=== PATIENT | male | born 1940 | race Caucasian/White ===

== ENCOUNTER 2017-09-28 14:34 | Inpatient (IN) | payer MEDICARE, MEDICAID ==
--- NOTE | 2017-09-28 15:21 | ED Physician Chart ---
ED Chief Complaint/HPI - Patient Information Date Seen:: 09/28/17 Time Seen:: 14:45 Chief Complaint:: Vertigo History of Present Illness:: onset x 3 days of weakness, dizziness, syncope, NS, and vertigo resulting in frequent falls; Hx of Left Elbow Fx/Subluxation; pt's last tetanus shot: < 5 years; UTD; no report of H/As, S/T, neck pain, C/P, SOB, Abd. Pain, A/N/V/D/C, fever, chills, or urinary s/s Allergies:: Allergies Allergy/AdvReac Type Severity Reaction Status Date / Time No Known Allergies Allergy Verified 09/28/17 15:06 Vitals:: Vital Signs - 8 hr 09/28/17 14:46 Temp 98.1 F HR 56 RR 16 BP 138/89 O2 Sat % 94 Historian:: Patient, EMS Review:: Nurse's Note Reviewed, Old Chart Reviewed, EMS run form Reviewed ED Review of Systems - Review of Systems General/Constitutional: No fever, No chills, No weight loss, Weakness, No diaphoresis, No edema, No loss of appetite Skin: No skin lesions, No rash, No bruising Head: No headache, No light-headedness Eyes: No loss of vision, No pain, No diplopia ENT: No earache, No nasal drainage, No sore throat, No tinnitus Neck: No neck pain, No swelling, No thyromegaly, No stiffness, No mass noted Cardio Vascular: No chest pain, No palpitations, No PND, No orthopnea, No edema Pulmonary: No SOB, No cough, No sputum, No wheezing GI: No nausea, No vomiting, No diarrhea, No pain, No melena, No hematochezia, No constipation, No hematemesis G/U: No dysuria, No frequency, No hematuria, No nacturia Musculoskeletal: No bone or joint pain, No back pain, No muscle pain Endocrine: No polyuria, No polydipsia Psychiatric: No prior psych history, No depression, No anxiety, No suicidal ideation, No homicidal ideation, No auditory hallucination, No visual hallucination Hematopoietic: No bruising, No lymphadenopathy Allergic/Immuno: No urticaria, No angioedema Neurological: Syncope, No focal symptoms, Weakness, No paresthesia, No headache , Seizure, Dizziness, Confusion, Vertigo ED Past Medical History - Past Medical History Obtainable: Yes Past Medical History: HTN, Dyslipidemia, Seizures Family History: HTN Social History: Non Smoker, No Alcohol, No Drug Use, Single, Care Facility Surgical History: other (Left Elbow Surgery) Psychiatricy History: None Medication: Reviewed Family Medical History - Family Member Mother History Unknown: Yes Ethnicity: Unknown Living Status: ED Physical Exam - Physical Examination General/Constitutional: Awake, Well-developed, well-nourished, Alert, No distress, GCS 15, Non-toxic appearing, Ambulatory Head: Atraumatic Eyes: Lids, conjuctiva normal, PERRL, EOMI Skin: Nl inspection, No rash, No skin lesions, No ecchymosis, Well hydrated, No lymphadenopathy ENMT: External ears, nose nl, TM canals nl, Nasal exam nl, Lips, teeth, gums nl , Oropharynx nl, Tonsils nl Neck: Nontender, Full ROM w/o pain, No JVD, No nuchal rigidity, No bruit, No mass, No stridor Respiratory: Nl effort/Exclusion, Clear to Auscultation, No Wheeze/Rhonchi/Rales Cardio Vascular: RRR, No murmur, gallop, rubs, NL S1 S2, Carotid/Femoral/Distal pulses equal bilaterally GI: No tenderness/rebounding/guarding, No organomegaly, No hernia, Normal BS's, Nondistended, No mass/bruits, No McBurney tenderness, Rectum exam nl : No CVA tenderness Extremities: No tenderness or effusion, Full ROM, normal strength in all extremities, No edema, Normal digits & nails Neuro/Psych: Alert/oriented, DTR's symmetric, Normal sensory exam, Normal motor strength, Judgement/insight normal, Mood normal, Normal gait, No focal deficits Misc: Normal back, No paraspinal tenderness ED Labs/Radiology/EKG Results - Lab Results Comments:: U/A: + Leukocytes - Radiology Results Comments:: NAD - EKG Interpretations EKG Time:: 15:17 Rate & Rhythm: 52; SB Comments:: T-Wave Inversions ED Septic Shock - . Is Septic Shock (SBP<90, OR Lactate>4 mmol\L) present?: No - <6hrs of presentation: Vital Signs: Vital Signs - 8 hr 09/28/17 14:46 Temp 98.1 F HR 56 RR 16 BP 138/89 O2 Sat % 94 ED Reassessment (Disposition) - Reassessment Reassessment Condition:: Improved - Diagnosis Diagnosis:: Dx: Syncope; Vertigo; Weakness; Dizziness; Myocardial Ischemia; Bradycardia; Bradyarrythmias; Cardiac Arrythmias; UTI - Aftercare/Follow up Instructions Aftercare/Follow-Up Instructions:: Counseled pt regarding lab results/diagnosis & need follow up, Counseled pt & family regarding lab results/diagnosis & need follow up - Patient Disposition Discharge/Transfer:: Acute Care w/in this hosp Accepting Physician:: Dr. Aldridge Time Called:: 1600 Time Responded:: 16:00 Admitted to:: Telemetry Spoke to:: Dr. Aldridge Admitting Medical Physician:: Dr. Aldridge Condition at Disposition:: Stable, Improved
[2017-09-28 15:38] LABS: % BASOPHILS 0.5 % (0.0-2.0); % EOSINOPHILS 3.3 % (0.0-5.0); % LYMPHOCYTES 21.2 % (20.0-50.0); % MONOCYTES 8.7 % (2.0-10.0); % NEUTROPHILS 66.3 % (40.0-80.0); EOSINOPHILE ABSOLUTE 0.2 Th/cmm (0.1-0.4); HEMATOCRIT 40.8 % (41.0-60); LYMPHOCYTE ABSOLUTE 1.1 Th/cmm (1.5-3.0); MEAN CELL VOLUME 87.4 fl (80-99); MEAN CORPUSCULAR HEMOGLOBIN 30.1 pg (27.0-31.0); MEAN CORPUSCULAR HGB CONC 34.5 pg (28.0-36.0); MEAN PLATELET VOLUME 8.2 fl; MONOCYTE ABSOLUTE 0.5 Th/cmm (0.3-1.0); NEUTROPHILE ABSOLUTE 3.5 Th/cmm (1.8-8.0); PLATELET COUNT 144 Th/cmm (150-400); RED BLOOD COUNT 4.66 Mil/cmm (3.80-5.80); WHITE BLOOD COUNT 5.3 Th/cmm (4.8-10.8)
[2017-09-28 15:51] LABS: INR 0.96 (0.5-1.4)
[2017-09-28 15:52] LABS: ALB/GLOB RATIO 1.3 (1.0-1.8); ALBUMIN 4.3 gm/dL (4.2-5.5); ALKALINE PHOSPHATASE 119 U/L (34-104); ANION GAP 10.4 (7.0-16.0); BILIRUBIN,TOTAL 0.3 mg/dL (0.3-1.0); BUN - UREA NITROGEN 24 mg/dL (7-25); CALCIUM SERUM 9.4 mg/dL (8.6-10.3); CARBON DIOXIDE 28.1 mEq/L (21.0-31.0); CHLORIDE 104 mEq/L (98-107); CHOLESTEROL 216 mg/dL (<200); CREATININE - SERUM 0.9 mg/dL (0.7-1.3); CREATININE KINASE 30 U/L (30-223); GLUCOSE 104 mg/dL (70-105); HDL -HIGH DENSITY LIPOPROTEIN 47 mg/dL (23-92); PHENYTOIN 10.1 ug/ml (10.0-20.0); POTASSIUM SERUM 4.5 mEq/L (3.5-5.1); SGOT 34 U/L (13-39); SGPT/ALT 37 U/L (7-52); SODIUM SERUM 138 mEq/L (136-145); TOTAL PROTEIN,SERUM 7.5 gm/dL (6.0-8.3); TRIGLYCERIDES 175 mg/dL (<150)
[2017-09-28 19:33] LABS: URINE MICROSCOPIC INDICATED? YES; URINE SOURCE RANDOM
[2017-09-28 19:36] LABS: URINE BILIRUBIN NEGATIVE (NEGATIVE); URINE BLOOD NEGATIVE (NEGATIVE); URINE GLUCOSE (UA) NEGATIVE (NEGATIVE); URINE KETONE NEGATIVE (NEGATIVE); URINE PROTEIN NEGATIVE (NEGATIVE); URINE UROBILINOGEN 0.2 E.U./dL (0.2 - 1.0)
[2017-09-28 20:33] LABS: URINE CLARITY CLEAR (CLEAR); URINE COLOR YELLOW
[2017-09-28 20:35] LABS: URINE LEUKOCYTE ESTERASE TRACE (NEGATIVE); URINE NITRATE NEGATIVE (NEGATIVE)
[2017-09-28 20:37] LABS: URINE BACTERIA NONE SEEN /hpf (NONE SEEN); URINE EPITHELIAL CELLS FEW /lpf (FEW); URINE RBC NONE SEEN /hpf (0-5); URINE WBC 0-2 /hpf (0-5)
[2017-09-28 23:15] VITALS: BP 134/69
[2017-09-29] MEDS: D5-0.45NS 1,000 ML IV SCH ×2 (00:14→22:47)
[2017-09-29 05:50] LABS: % BASOPHILS 0.7 % (0.0-2.0); % LYMPHOCYTES 22.5 % (20.0-50.0); % MONOCYTES 10.4 % (2.0-10.0); % NEUTROPHILS 63.4 % (40.0-80.0); EOSINOPHILE ABSOLUTE 0.1 Th/cmm (0.1-0.4); HEMATOCRIT 39.7 % (41.0-60); HEMOGLOBIN 13.5 gm/dL (12-16); LYMPHOCYTE ABSOLUTE 1.1 Th/cmm (1.5-3.0); MEAN CORPUSCULAR HEMOGLOBIN 30.2 pg (27.0-31.0); MEAN CORPUSCULAR HGB CONC 33.9 pg (28.0-36.0); MEAN PLATELET VOLUME 8.3 fl; MONOCYTE ABSOLUTE 0.5 Th/cmm (0.3-1.0); NEUTROPHILE ABSOLUTE 3.2 Th/cmm (1.8-8.0); PLATELET COUNT 140 Th/cmm (150-400); RED BLOOD COUNT 4.46 Mil/cmm (3.80-5.80); WHITE BLOOD COUNT 4.9 Th/cmm (4.8-10.8)
[2017-09-29 06:03] LABS: BUN - UREA NITROGEN 18 mg/dL (7-25); CALCIUM SERUM 9.1 mg/dL (8.6-10.3); CARBON DIOXIDE 24.7 mEq/L (21.0-31.0); CHLORIDE 108 mEq/L (98-107); CREATININE - SERUM 0.6 mg/dL (0.7-1.3); GLUCOSE 91 mg/dL (70-105); POTASSIUM SERUM 3.7 mEq/L (3.5-5.1); SODIUM SERUM 139 mEq/L (136-145)
--- NOTE | 2017-09-29 07:54 | Diagnostic Imaging Report ---
Head CT without intravenous contrast Indication: Dizziness, vertigo syncope Comparison: None Technique: Axial images were obtained from the vertex to the skull base without IV contrast. Coronal reconstructions were made. Total DLP: 721, CTDI37.5 FINDINGS: Images of the brain obtained without contrast demonstrate no evidence of acute hemorrhage. Atrophy is noted. Moderate white matter disease is noted. 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 The ventricles and basal cisterns are patent. No mass effect or midline shift. No evidence of a skull fracture or focal soft tissue swelling. The visualized paranasal sinuses are clear. There is deviation of the nasal septum. Atherosclerosis is noted. IMPRESSION: No evidence of an acute intracranial hemorrhage. Atrophy. Moderate supratentorial white matter disease which is nonspecific and may be due to chronic microvessel ischemia.. 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
[2017-09-29] MEDS: Diclofenac 75 mg Tab PO SCH ×2 (08:48→17:59)
[2017-09-30] MEDS: D5-0.45NS 1,000 ML IV SCH ×2 (01:59→18:08)
[2017-09-30] MEDS: Diclofenac 75 mg Tab PO SCH ×2 (08:11→16:22)
[2017-09-30 20:16] LABS: CHOLESTEROL 197 mg/dL (<200); HDL -HIGH DENSITY LIPOPROTEIN 43 mg/dL (23-92); TRIGLYCERIDES 144 mg/dL (<150)
[2017-10-01] MEDS: D5-0.45NS 1,000 ML IV SCH ×2 (05:39→20:09)
--- NOTE | 2017-10-01 09:27 | Diagnostic Imaging Report ---
CHEST X-RAY: AP view INDICATION: Uncontrolled hypertension COMPARISON: 10/22/2014 FINDINGS: Chronic lung changes are seen with probable COPD. No focal consolidation or effusions. Heart size normal. Atherosclerosis is noted. Degenerative changes of the spine are noted. Multiple left rib fractures are seen which appear chronic. No evidence of pneumothorax. IMPRESSION: Chronic lung changes and probable COPD with likely left basal scarring. No focal consolidation identified. Atherosclerotic vascular disease. Multiple left rib fractures which appear chronic. No evidence of pneumothorax. Please correlate with clinical findings.
[2017-10-01] MEDS: Diclofenac 75 mg Tab PO SCH ×2 (09:29→16:35)
--- NOTE | 2017-10-02 04:45 | Consultation ---
DATE OF CONSULTATION: 10/01/2017 HISTORY OF PRESENT ILLNESS: This 76-year-old male was seen and examined in the courtesy of Dr. Aldridge . The patient was admitted with uncontrolled hypertension besides LVH, history of hypertension, also history of hyperlipidemia, COPD. He also has been complaining of pain in the left elbow with a questionable fracture of left elbow. There was no history of any chest pains. No history of shortness of breath, no history of PND, no history of orthopnea, no history of cough, no history of fever, no history of hemoptysis, no history of any dizziness, no history of seizures, no history of abdominal pain. No history of nausea or vomiting. No history of hematemesis. No history of melena, no history of bleeding per rectum. No history of phlebitis. PHYSICAL EXAMINATION: VITAL SIGNS: Heart rate was 56, blood pressure was 120/59. Initial blood pressure was 205/111 and it started coming down slowly. SKIN: Normal. HEAD: Normocephalic. EYES: Conjunctivae were pink. There is no icterus in the eyes. Pupils reacting to light. NECK: There were no increased jugular venous distention, no thyromegaly, no lymphadenopathy. Carotids equal on both sides. CHEST: Bilaterally symmetrical, moved well with respiration. Respiratory movements equal on both sides. Trachea is central. There is note to percussion. Breath sound, no rhonchi. CARDIOVASCULAR SYSTEM: PMI not well localized. There is no pulsation or thrill. No parasternal heave. S1 normal, S2 physiologic. There were no S3, no rub. ABDOMEN: Soft, no tenderness, no rigidity, no guarding, no organomegaly. Bowel sounds normal. LABORATORY DATA: On reviewing the lab, urinalysis was unremarkable. Sodium was 138, potassium 4.5, chloride 104, CO2 of 28.1, BUN 24, creatinine 0.9, cholesterol 216, triglycerides 175, HDL 47, LDL 124. First troponin was less than 0.01. BNP was 70. WBC was 5.3, hemoglobin 14, hematocrit 40.5, MCV 87, MCH 30.1, MCHC 34.5, platelet count was 144. Chest x-ray has shown chronic lung changes, which is typically consistent with COPD, atherosclerotic vascular disease, multiple rib fractures, and an echocardiogram revealed ejection fraction of 68%. Also, has mild opacification, LVH and RVH, right ventricular systolic pressure was 32.2 on echocardiogram. IMPRESSION: Hypertension, uncontrolled; left ventricular hypertrophy; hyperlipidemia; chronic obstructive pulmonary disease, pain in left elbow, questionable history of fracture of left elbow, anemia. DISCUSSION SESSION. Suggest to continue present management. Serial troponin levels to be done. For BP, we will add hydralazine 500 mg t.i.d. Suggest to continue present management. Further recommendation will be made depending on the rest of the tests available. JOB# [id number]
[2017-10-02] MEDS: Diclofenac 75 mg Tab PO SCH ×2 (08:24→16:30)
[2017-10-02] MEDS: D5-0.45NS 1,000 ML IV SCH (11:18)
--- NOTE | 2017-10-02 14:52 | History & Physical ---
ADMIT DATE: 09/28/2017 CHIEF COMPLAINT: Headache and chest pain. HISTORY OF PRESENT ILLNESS: This male, , 78 years of age, was admitted at the [facility] from [facility] because of chest pain and discomfort and high blood pressure. He was evaluated and found to be basically normal at the Emergency Room, but his blood pressure remained quite high and has been admitted in the regular floor for further evaluation and treatment. PAST MEDICAL HISTORY: History notable of; 1. 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 2. Dementia with early Alzheimer's. 3. Generalized degenerative joint disease with osteoarthritis and osteoporosis. 4. Wheelchair bound. FAMILY HISTORY: ____ heart diseases. He has had his usual childhood diseases. He has had his immunizations at the time they were needed. ALLERGIES: Denies any known allergies. SOCIAL HISTORY: He has history of smoking. I am not sure about alcohol, but at the present time, he does not indulge in smoking or alcohol. MEDICATIONS: Medication list is not available. REVIEW OF SYSTEMS: Confusion, headache, aggressive behavior, vague chest discomfort, no abdominal discomfort. He is bowel and urine incontinent. PHYSICAL EXAMINATION: GENERAL: The patient appears weak and tired. VITAL SIGNS: He is about 5 feet 7 inches, weighs about 142 pounds, pulse 70, respirations 20, temperature is 98.6. The patient is in a wheelchair. HEENT: Skull symmetrical. No alopecia. No mass. No ____ bruit. The eyes, ears, nose and throat are basically normal except for arteriosclerotic change of the fundi with bilateral arcus senilis and senile cataracts SKIN: Benign with no dermatosis, no particular ecchymosis, no jaundice or discoloration. NECK: Supple. Thyroid is not enlarged. Trachea is midline. Bilateral carotids, no bruits. No supraclavicular or breast engorgement. No lymphadenopathy. CHEST: Symmetrical. No gynecomastia. LUNGS: Clear with a few occasional rhonchi, but otherwise the bases are clear and no wheezing. CARDIOVASCULAR: Regular rate and rhythm. ____ is enlarged, point of maximum intensity, fifth intercostal spaces at the left midclavicular line. ABDOMEN: Physiologic. No organomegaly. No rebound, guarding or tenderness. No ascites ____, peristalsis audible on auscultable. PROSTATE AND RECTAL: External genitalia exam has been refused to uncooperativeness. EXTREMITIES: Show weak, but palpable pulses. Negative Homans sign. Extremities show hypertrophic joints because of disuse and atrophy of muscles due to disuse. NEUROLOGIC: Cranial nerves appeared to be intact. No apparent sensory or motor deficits. No pathological reflexes. ADMITTING DIAGNOSIS: Uncontrolled accelerated hypertension. SECONDARY DIAGNOSIS: Dementia and arteriosclerotic and hypertensive cardiovascular heart disease with generalized degenerative joint disease with osteoarthritis and osteoporosis. PLAN: To admit the patient in the hospital, cardiac consult, monitor blood pressure, start on blood pressure medications, we can control him and then he can ____. JOB# [id number]
[2017-10-03] MEDS: D5-0.45NS 1,000 ML IV SCH (00:22)
[2017-10-03] MEDS: Diclofenac 75 mg Tab PO SCH ×2 (09:06→16:37)
--- NOTE | 2017-10-03 15:55 | Cardiology ---
10/01/2017 PROCEDURE: Echocardiogram. M-MODE ECHOCARDIOGRAM: Mitral valve, anterior leaflet of mitral valve shows normal excursion, EF velocity. Posterior leaflet of the mitral valve shows normal excursion. Left ventricular posterior wall shows increased thickness, normal excursion. Interventricular septum shows increased thickness, normal excursion, hypertrophy of the left ventricle, ejection fraction 68%. Left atrium normal. Aortic root shows normal dimension, normal excursion of aortic leaflets. CONCLUSION: Hypertrophy of the left ventricle, ejection fraction 68%. 2D ECHO: Long axis view showed normal sized left ventricle with hypertrophy of the left ventricle. Left atrium normal. Aortic root shows normal dimension, normal excursion of aortic leaflets. Short axis view of mitral valve normal. Short axis view of aortic valve normal. Apical four chamber view showed normal sized left ventricle with hypertrophy of the left ventricle. Left atrium normal. Right ventricular cavity, right atrium normal, no pericardial effusion. CONCLUSION: Hypertrophy of the left ventricle, ejection fraction 68%. Doppler study shows mild mitral regurgitation, mild tricuspid regurgitation, right ventricular systolic pressure [address] mmHg. [facility]# [id number]
== END 2017-10-03 17:15 | DRG 305 ==
LOC: ER 14:34 → MSI 21:50
PROVIDERS: ADMIT Family Medicine; ATTEND Family Medicine
DX: I11.9 Hypertensive heart disease without heart failure (principal); N39.0 Urinary tract infection, site not specified; M19.90 Unspecified osteoarthritis, unspecified site; M81.0 Age-related osteoporosis without current pathological fracture; E78.5 Hyperlipidemia, unspecified; J44.9 Chronic obstructive pulmonary disease, unspecified; D64.9 Anemia, unspecified; R56.9 Unspecified convulsions; R55 Syncope and collapse; R00.1 Bradycardia, unspecified; I25.9 Chronic ischemic heart disease, unspecified; G30.9 Alzheimer's disease, unspecified; F02.80 Dementia in other diseases classified elsewhere, unspecified severity, without behavioral disturbance, psychotic disturbance, mood disturbance, and anxiety; M25.522 Pain in left elbow; I25.10 Atherosclerotic heart disease of native coronary artery without angina pectoris; Z82.49 Family history of ischemic heart disease and other diseases of the circulatory system; Z99.3 Dependence on wheelchair; Z87.891 Personal history of nicotine dependence
CPT/HCPCS: 36415-UA; 70450-TC; 71045-TC; 80048-TC; 80053-TC; 80061-TC; 80185-TC; 80299-90; 81001-TC; 82550-TC; 83880-TC; 84443-TC; 84484-TC; 85025-TC; 85610-TC; 87086-90; 93005; 94760; Z7610

== ENCOUNTER 2018-03-17 10:13 | Inpatient (IN) | payer MEDICARE, MEDICAID ==
--- NOTE | 2018-03-17 10:35 | ED Physician Chart ---
ED Chief Complaint/HPI - Patient Information Date Seen:: 03/17/18 Time Seen:: 10:25 Chief Complaint:: cough & need for oxygen History of Present Illness:: cough & need for oxygen in a man who continues to smoke. H/o cardiac arrhythmias. Allergies:: Allergies Allergy/AdvReac Type Severity Reaction Status Date / Time No Known Allergies Allergy Verified 09/28/17 15:06 Vitals:: Vital Signs - 8 hr 03/17/18 10:25 Temp 98.8 F HR 79 RR 17 BP 102/51 O2 Sat % 90 Historian:: Medical Records Review:: Nurse's Note Reviewed, Transfer documents Reviewed ED Review of Systems - Review of Systems General/Constitutional: No fever, No chills, No weight loss, No weakness, No diaphoresis, No edema, No loss of appetite Skin: No skin lesions, No rash, No bruising Head: No headache, No light-headedness Eyes: No loss of vision, No pain, No diplopia ENT: No earache, No nasal drainage, No sore throat, No tinnitus Neck: No neck pain, No swelling, No thyromegaly, No stiffness, No mass noted Cardio Vascular: No chest pain, No palpitations, No PND, No orthopnea, No edema Pulmonary: SOB, Cough, No sputum, Other (need for oxygen) GI: No nausea, No vomiting, No diarrhea, No pain, No melena, No hematochezia, No constipation, No hematemesis G/U: No dysuria, No frequency, No hematuria Musculoskeletal: No bone or joint pain, No back pain, No muscle pain Endocrine: No polyuria, No polydipsia Psychiatric: No prior psych history, No depression, No anxiety, No suicidal ideation, No homicidal ideation, No auditory hallucination, No visual hallucination Hematopoietic: No bruising, No lymphadenopathy Allergic/Immuno: No urticaria, No angioedema Neurological: No syncope, No focal symptoms, No weakness, No paresthesia, No headache, No seizure, No dizziness, No confusion, No vertigo ED Past Medical History - Past Medical History Obtainable: No Past Medical History: Seizures, Other (osteoarthritis; pneumonia) Psychiatricy History: Schizophrenia Family Medical History - Family Member Mother History Unknown: Yes Ethnicity: Living Status: ED Physical Exam - Physical Examination General/Constitutional: Awake Other Gen/Cons comments:: chronically ill appearing. Other Head comments:: multiple scars throughout forehead. Eyes: Lids, conjuctiva normal, PERRL, EOMI Skin: Nl inspection, No rash, No skin lesions, No ecchymosis, Well hydrated, No lymphadenopathy Other Skin comments:: dry oral mucosa multiple scars throughout forehead. ENMT: External ears, nose nl Neck: Nontender, No nuchal rigidity, No stridor Respiratory: Nl effort/Exclusion Other Respiratory comments:: in no respiratory distress with oxygen in place. Expiratory rhonchi in the RLL base. Cardio Vascular: RRR, No murmur, gallop, rubs, NL S1 S2 GI: No tenderness/rebounding/guarding, No organomegaly, No hernia, Normal BS's, Nondistended, No mass/bruits, No McBurney tenderness Extremities: No tenderness or effusion, Full ROM, normal strength in all extremities, No edema, Normal digits & nails Neuro/Psych: Alert/oriented, Normal sensory exam, Normal motor strength, Judgement/insight normal, Mood normal, No focal deficits Misc: Normal back ED Assessment - Assessment General Assessment: EKG from 10:40:57 a.m. reveals normal sinus rhythm with ST elevation (minimal in II only); flipped t wave in AVL; ST depression V4 to V6. CXR per my reading: Bilateral lower lobe pneumonia. phone call to Dr. Tay for admit at 11:[address] Tay called again at 12:30 p.m. He is busy seeing patients. He will call us back. Dr. Tay called two more times. Dr. Knox called back and said that he would admit to his service. Then, Dr. Tay called us at 2:35 p.m. Patient's case was presented to him and he gave admit orders. Dr. Knox's service was called back at 2:51 p[address] and told that Dr. Tay had called in with orders. ED Septic Shock - . Is Septic Shock (SBP<90, OR Lactate>4 mmol\L) present?: No - <6hrs of presentation: Vital Signs: Vital Signs - 8 hr 03/17/18 10:25 Temp 98.8 F HR 79 RR 17 BP 102/51 O2 Sat % 90 ED Reassessment (Disposition) - Reassessment Reassessment Condition:: Improved - Diagnosis Diagnosis:: Pneumonia Hypoxia Oxygen dependence COPD Leukocytosis Thrombocytopenia (chronic and stable) Elevated BNP of 319 (clinically, the patient is dry) - Patient Disposition Discharge/Transfer:: Acute Care w/in this hosp Admitted to:: Telemetry Condition at Disposition:: Stable, Improved
[2018-03-17] MEDS ORDERED: Lactated Ringer 1,000 ML IV ONE (10:40)
[2018-03-17 11:02] LABS: HEMATOCRIT 38.6 % (41.0-60); MEAN CELL VOLUME 88.3 fl (80-99); MEAN CORPUSCULAR HEMOGLOBIN 29.8 pg (27.0-31.0); MEAN CORPUSCULAR HGB CONC 33.7 pg (28.0-36.0); PLATELET COUNT 143 Th/cmm (150-400); RED BLOOD COUNT 4.38 Mil/cmm (3.80-5.80); RED CELL DISTRIBUTION WIDTH 12.8 % (11.5-20.0)
[2018-03-17 11:03] LABS: WHITE BLOOD COUNT 21.1 Th/cmm (4.8-10.8)
--- NOTE | 2018-03-17 11:04 | Diagnostic Imaging Report ---
CHEST X-RAY: AP view INDICATION: Hypoxia, right lower lobe ronchi COMPARISON: 09/30/2017 FINDINGS: Increased interstitial lung markings are noted. No focal consolidation or effusions. Heart size is normal. Atherosclerosis is noted. Degenerative changes of the spine are noted. IMPRESSION: Increased interstitial lung markings probably due to chronic lung changes and COPD. A Marginal degree of congestion cannot be excluded. Developing right basal infiltrate can also not be excluded. Atherosclerotic vascular disease.
[2018-03-17 11:13] LABS: ALB/GLOB RATIO 1.1 (1.0-1.8); ALBUMIN 3.6 gm/dL (4.2-5.5); ALKALINE PHOSPHATASE 125 U/L (34-104); ANION GAP 11.4 (7.0-16.0); BILIRUBIN,TOTAL 0.5 mg/dL (0.3-1.0); BUN - UREA NITROGEN 24 mg/dL (7-25); CALCIUM SERUM 9.3 mg/dL (8.6-10.3); CARBON DIOXIDE 27.5 mEq/L (21.0-31.0); CHLORIDE 103 mEq/L (98-107); CREATININE - SERUM 0.9 mg/dL (0.7-1.3); GLUCOSE 162 mg/dL (70-105); MAGNESIUM 2.1 mg/dL (1.9-2.7); PHOSPHOROUS 2.5 mg/dL (2.5-5.0); POTASSIUM SERUM 3.9 mEq/L (3.5-5.1); SGOT 25 U/L (13-39); SGPT/ALT 23 U/L (7-52); SODIUM SERUM 138 mEq/L (136-145); TOTAL PROTEIN,SERUM 6.9 gm/dL (6.0-8.3)
[2018-03-17 11:22] LABS: NEUTROPHILS 84 % (40-80)
[2018-03-17 11:23] LABS: BAND NEUTROPHILE 8 % (0-10); BASOPHIL 0 % (0-3); EOSINOPHIL 0 % (0-5); LYMPHOCYTE 4 % (20-50); MONOCYTE 4 % (2-10)
[2018-03-17] MEDS: cefTRIAXone 1 GM in Sodium Chloride 0.9% 50 ML IV SCH (16:41)
[2018-03-17 18:28] VITALS: BP 136/66
[2018-03-17] MEDS: Albuterol/Ipratropium Neb 3 ML AERS HHN SCH (19:44)
[2018-03-17] MEDS: Azithromycin 500 MG in Sodium Chloride 0.9% 250 ML IV SCH (20:34)
[2018-03-18] MEDS: Albuterol/Ipratropium Neb 3 ML AERS HHN SCH ×4 (00:30→18:56)
[2018-03-18 01:30] LABS: URINE SOURCE CLEAN C
[2018-03-18 01:34] LABS: URINE BILIRUBIN NEGATIVE (NEGATIVE); URINE BLOOD TRACE (NEGATIVE); URINE GLUCOSE (UA) NEGATIVE (NEGATIVE); URINE KETONE TRACE mg/dL (NEGATIVE); URINE LEUKOCYTE ESTERASE LARGE (NEGATIVE); URINE MICROSCOPIC INDICATED? YES; URINE NITRATE POSITIVE (NEGATIVE); URINE PROTEIN NEGATIVE (NEGATIVE); URINE UROBILINOGEN 0.2 E.U./dL (0.2 - 1.0)
[2018-03-18 01:47] LABS: URINE CLARITY HAZY (CLEAR); URINE COLOR STRAW
[2018-03-18 02:33] LABS: URINE RBC 0-2 /hpf (0-5)
[2018-03-18 02:35] LABS: URINE BACTERIA 3+ /hpf (NONE SEEN); URINE EPITHELIAL CELLS RARE /lpf (FEW)
[2018-03-18 07:25] LABS: HEMATOCRIT 37.8 % (41.0-60); HEMOGLOBIN 12.6 gm/dL (12-16); MEAN CORPUSCULAR HEMOGLOBIN 29.7 pg (27.0-31.0); MEAN CORPUSCULAR HGB CONC 33.4 pg (28.0-36.0); MEAN PLATELET VOLUME 7.9 fl; PLATELET COUNT 131 Th/cmm (150-400); RED BLOOD COUNT 4.25 Mil/cmm (3.80-5.80)
[2018-03-18 07:52] LABS: WHITE BLOOD COUNT 9.7 Th/cmm (4.8-10.8)
[2018-03-18 07:59] LABS: ALBUMIN 3.5 gm/dL (4.2-5.5); ALKALINE PHOSPHATASE 115 U/L (34-104); ANION GAP 10.5 (7.0-16.0); BILIRUBIN,TOTAL 0.4 mg/dL (0.3-1.0); BUN - UREA NITROGEN 23 mg/dL (7-25); CALCIUM SERUM 9.3 mg/dL (8.6-10.3); CARBON DIOXIDE 30.5 mEq/L (21.0-31.0); CHLORIDE 104 mEq/L (98-107); GLUCOSE 99 mg/dL (70-105); MAGNESIUM 2.1 mg/dL (1.9-2.7); SGOT 25 U/L (13-39); SGPT/ALT 21 U/L (7-52); SODIUM SERUM 141 mEq/L (136-145); TOTAL PROTEIN,SERUM 6.9 gm/dL (6.0-8.3)
[2018-03-18 08:22] LABS: INR 0.97 (0.5-1.4); PROTHROMBIN TIME (TEST) 10.1 SECONDS (9.5-11.5)
[2018-03-18 09:22] LABS: BAND NEUTROPHILE 4 % (0-10); BASOPHIL 0 % (0-3); EOSINOPHIL 0 % (0-5); LYMPHOCYTE 7 % (20-50); MONOCYTE 8 % (2-10); NEUTROPHILS 81 % (40-80)
--- NOTE | 2018-03-18 09:22 | Diagnostic Imaging Report ---
Exam: CT examination of chest. HISTORY: Shortness of breath. Total DLP equals 246 CTDI equals 6.6 Findings: Multiple contiguous thin section of the chest were obtained from thoracic outlet to the upper abdomen without the administration of contrast material, no prior studies available comparison. The study is limited without administration of contrast material. Adenopathy in the neck area cannot be excluded There is evidence for mild interstitial infiltrate in the right mid lower lung. The distal structures midline the heart is not enlarged the left lung parenchyma is well aerated. Bony structures intact. Aortic arch calcified. There is evidence for hiatal hernia. The visualized upper abdomen is intact. IMPRESSION: Mild right mid lower lung infiltrate follow-up exam is recommended if clinically indicated.
[2018-03-18] MEDS ORDERED: VTE Chemical Prophylaxis Screen/Admission MC PRN (09:25)
[2018-03-18] MEDS ORDERED: Probiotic Screen MC PRN (09:40)
[2018-03-18] MEDS ORDERED: Enoxaparin 80 mg/0.8 mL 0.8mL Syr SUBQ SCH (12:00)
[2018-03-18 13:35] LABS: CREATININE - SERUM 0.6 mg/dL (0.7-1.3)
[2018-03-18] MEDS: Lactobacillus Rhamnosus GG 15 Billion CFU CAP.SPRINK PO SCH (13:35)
[2018-03-18] MEDS: cefTRIAXone 1 GM in Sodium Chloride 0.9% 50 ML IV SCH (14:55)
[2018-03-18] MEDS: Aspirin 81mg Chewable Tab PO SCH (16:23)
[2018-03-18] MEDS: Nitroglycerin 0.2 mg/hr Tdm TD SCH ×3 (16:24→17:05)
--- NOTE | 2018-03-18 19:45 | History & Physical ---
ADMIT DATE: 03/18/2018 PATIENT'S IDENTIFICATION: A 77-year-old male. CHIEF COMPLAINT: Fever, chills, cough, congestion for 1 week. HISTORY OF PRESENT ILLNESS: A 77-year-old resident of [facility], has a diagnosis of seizure, DJD, and hypertension, brought in to the Emergency Room for evaluation of cough, congestion, and shortness of breath. The patient was worked up in the Emergency Room, noted to have infiltrate on chest x-ray and questionable elevated troponin. The patient was advised to be admitted in the hospital for further treatment. PAST MEDICAL HISTORY: Remarkable for: 1. DJD. 2. Seizure disorder. MEDICATIONS AT HOME: Diclofenac, Keppra, and Dilantin. ALLERGIES: The patient is not allergic to medications. SOCIAL HISTORY: The patient resides in assisted living facility. The patient has a history of smoking cigarette. No history of any alcohol or drug use. FAMILY MEDICAL HISTORY: Remarkable for hypertension. REVIEW OF SYSTEMS: The patient has a productive cough, congestion and shortness of breath. The patient denies any fever or chills. The patient denies any nausea, vomiting, diarrhea, dysuria, hematuria, hematochezia, or melena. No recent seizure. The patient denies any chest pain or any paroxysmal nocturnal dyspnea or orthopnea. The patient is wheelchair bound. PHYSICAL EXAMINATION: GENERAL: The patient is alert, awake, lying in the bed without any acute distress. VITAL SIGNS: Temperature 96.8, pulse is 64, respiratory rate 18, blood pressure 136/64. HEENT: Normocephalic, atraumatic. Extraocular muscles are intact. Tongue was pink and coated. Poor dentition noted. NECK: Supple. No JVD, no hepatojugular reflux. No lymphadenopathy, thyromegaly, or carotid bruit. HEART: Both heart sounds are regular. CHEST: Lung equal in expansion with diffuse expiratory wheezing. ABDOMEN: Soft. No guarding, no rigidity. Liver and spleen are not palpable mass. EXTREMITIES: No edema, no cyanosis, no clubbing. Peripheral pulses are +1. No calf tenderness noted. NEUROLOGIC: Alert, awake, follows command. No facial asymmetry. Decreased power throughout the upper and lower extremities noted. AVAILABLE DIAGNOSTIC DATA: Chest x-ray performed in the Emergency Room remarkable for increased interstitial marking and questionable right basal infiltrate, COPD was also noted. EKG nondiagnostic. White count of 21.1, hemoglobin 13.0, platelet count of 143, glucose 162. Electrolytes are normal. Troponin 0.16. BNP of 319. Urinalysis remarkable for nitrite being positive, large leukocyte esterase, WBC 10-25, bacteria were 3+ and Dilantin level was 10. CLINICAL IMPRESSIONS: 1. Most likely chronic obstructive pulmonary disease exacerbation. 2. Right lower lobe pneumonia. 3. Elevated troponin, most likely secondary to demand ischemia, considering type 2 myocardial infarction. 4. Seizure disorder. 5. Degenerative joint disease. 6. Urinary tract infection, most likely secondary to prostatitis. PLAN: 1. Admit this patient to telemetry unit. 2. Oxygen. 3. Nebulizer treatment. 4. Pulmonary toilet. 5. Pulmonary consult. 6. IV Rocephin and Zithromax. 8. Cardiology consultation. 9. Seizure medication. 10. Seizure precautions. 11. Pulmonary consult. 12. Follow lab. 13. Follow agriculture consultant recommendations. 14. Care plan reviewed and discussed with staff as well. JOB# [id number]
[2018-03-18] MEDS: Azithromycin 500 MG in Sodium Chloride 0.9% 250 ML IV SCH ×2 (20:45→22:15)
[2018-03-18] MEDS ORDERED: Lovenox 1 mg/kg Q12H 1 Each Miscellaneous SUBQ SCH (21:00)
[2018-03-18] MEDS: Enoxaparin 80 mg/0.8 mL 0.8mL Syr SUBQ SCH (22:26)
[2018-03-19] MEDS: Albuterol/Ipratropium Neb 3 ML AERS HHN SCH ×4 (00:51→18:17)
[2018-03-19] MEDS ORDERED: Levofloxacin 750mg/150mL 750 MG/150 ML BAG IV SCH (02:00)
[2018-03-19 07:26] LABS: % BASOPHILS 0.4 % (0.0-2.0); % EOSINOPHILS 2.8 % (0.0-5.0); % LYMPHOCYTES 16.6 % (20.0-50.0); % MONOCYTES 12.2 % (2.0-10.0); EOSINOPHILE ABSOLUTE 0.2 Th/cmm (0.1-0.4); HEMATOCRIT 33.6 % (41.0-60); HEMOGLOBIN 11.3 gm/dL (12-16); LYMPHOCYTE ABSOLUTE 0.9 Th/cmm (1.5-3.0); MEAN CELL VOLUME 88.7 fl (80-99); MEAN CORPUSCULAR HEMOGLOBIN 29.7 pg (27.0-31.0); MEAN CORPUSCULAR HGB CONC 33.5 pg (28.0-36.0); MEAN PLATELET VOLUME 7.8 fl; MONOCYTE ABSOLUTE 0.7 Th/cmm (0.3-1.0); NEUTROPHILE ABSOLUTE 3.9 Th/cmm (1.8-8.0); PLATELET COUNT 139 Th/cmm (150-400); RED BLOOD COUNT 3.79 Mil/cmm (3.80-5.80); RED CELL DISTRIBUTION WIDTH 12.9 % (11.5-20.0); WHITE BLOOD COUNT 5.7 Th/cmm (4.8-10.8)
[2018-03-19 08:10] LABS: ALBUMIN 3.2 gm/dL (4.2-5.5); ALKALINE PHOSPHATASE 93 U/L (34-104); BILIRUBIN,TOTAL 0.2 mg/dL (0.3-1.0); BUN - UREA NITROGEN 23 mg/dL (7-25); CALCIUM SERUM 8.9 mg/dL (8.6-10.3); CARBON DIOXIDE 29.2 mEq/L (21.0-31.0); CHLORIDE 105 mEq/L (98-107); CHOLESTEROL 153 mg/dL (<200); CREATININE - SERUM 0.6 mg/dL (0.7-1.3); GLUCOSE 99 mg/dL (70-105); HDL -HIGH DENSITY LIPOPROTEIN 49 mg/dL (23-92); POTASSIUM SERUM 4.2 mEq/L (3.5-5.1); SGOT 22 U/L (13-39); SGPT/ALT 18 U/L (7-52); SODIUM SERUM 140 mEq/L (136-145); TOTAL PROTEIN,SERUM 6.3 gm/dL (6.0-8.3); TRIGLYCERIDES 117 mg/dL (<150)
[2018-03-19] MEDS: Lactobacillus Rhamnosus GG 15 Billion CFU CAP.SPRINK PO SCH (08:20)
[2018-03-19] MEDS: Aspirin 81mg Chewable Tab PO SCH (08:20)
[2018-03-19] MEDS: Enoxaparin 80 mg/0.8 mL 0.8mL Syr SUBQ SCH (08:21)
[2018-03-19] MEDS: methylPREDNISolone SS 40 mg Vial IV SCH ×2 (13:25→21:33)
[2018-03-19] MEDS: Levofloxacin IVPB 750mg/150mL Premix Bag IV SCH (14:07)
[2018-03-19] MEDS: Nitroglycerin 0.2 mg/hr Tdm TD SCH (16:30)
[2018-03-20] MEDS: Albuterol/Ipratropium Neb 3 ML AERS HHN SCH ×4 (00:09→19:00)
--- NOTE | 2018-03-20 01:35 | Progress Notes ---
DATE: 03/19/2018 IDENTIFICATION: A 77-year-old male. SUBJECTIVE: The patient seen and examined. The patient is lying in the bed. The patient had allergic reaction after IV azithromycin. The patient currently remained afebrile. PHYSICAL EXAMINATION: VITAL SIGNS: Temperature 96.8, pulse is 60, respiratory rate is 18, blood pressure 138/60. Blood culture has no growth so far. HEENT: No facial asymmetry. Upper and lower dentition noted. NECK: Supple, no JVD. HEART: Regular. CHEST: Lung equal in expansion with expiratory wheezing. ABDOMEN: Soft, no guarding, no rigidity. Bowel sounds present. No palpable mass. EXTREMITIES: No edema. AVAILABLE DIAGNOSTIC DATA: Sodium 140, potassium 4.2, chloride 105, CO2 of 29.2, BUN and creatinine is 23.6, total bilirubin 0.2. Troponin is 0.10, albumin of 3.2. White count of 5.7, hemoglobin 11.3, platelet count of 139. CLINICAL IMPRESSION: 1. Chronic obstructive pulmonary disease exacerbation. 2. Right middle lobe pneumonia. 3. Elevated troponin most likely secondary to demand ischemia. 4. Seizure disorder. 5. Degenerative joint disease. 6. History of smoking. PLAN: 1. The patient is to get oxygen. 2. Nebulizer treatment 3. IV steroid. 4. Probiotic. 5. General nursing care. 6. Follow lab. 7. Follow consult recommendation. 8. Seizure precaution. 9. Seizure medication. 10. Start PT and OT. 11. Care plan reviewed and discussed with staff. JOB# [id number]
[2018-03-20] MEDS: methylPREDNISolone SS 40 mg Vial IV SCH ×2 (05:10→21:35)
--- NOTE | 2018-03-20 05:46 | Consultation ---
DATE OF CONSULTATION: 03/19/2018 HISTORY OF PRESENT ILLNESS: This 77-year-old male was seen and examined at the courtesy of Dr. Tay. The patient was admitted here and he was transferred from [facility] with complaint of shortness of breath and cough. He was evaluated in the Emergency Room, was found to have pneumonia and elevated troponin level. The patient does have history of hypertension, history of COPD, history of degenerative joint disease, history of seizures. The patient denied any chest pains. DICTATION ENDS HERE JOB# [id number]
--- NOTE | 2018-03-20 06:07 | Consultation ---
DATE OF CONSULTATION: 03/19/2018 ADDENDUM The patient did not complain of any chest pain, did complain of shortness of breath and cough. The patient does have history of seizures. There was no history of recurrent seizures, no history of abdominal pain, no history of hemoptysis, no history of dizziness, no history of nausea or vomiting, no history of hematemesis, no history of melena, no history of bleeding per rectum. The patient is wheelchair bound. PAST MEDICAL HISTORY: Usual childhood diseases. No history of rheumatic fever. No history of scarlet fever. Other past history as mentioned above. ALLERGIES: There is no history of any allergies to any medications. SOCIAL HISTORY: No history of alcohol or drug abuse. The patient has a chronic history of smoking. PHYSICAL EXAMINATION: VITAL SIGNS: The heart rate was 66, blood pressure was 140/62, temperature 96.8, respirations 18. SKIN: Normal. HEAD: Normocephalic. EYES: Conjunctivae were pink. There was no icterus in the eyes. Pupils are equally reactive to light. NECK: There was no increased jugular venous distention. No thyromegaly. No lymphadenopathy. Carotids equal on both sides. CHEST: Bilaterally symmetrical, moved well with respiration. Respiratory movements equal on both sides. Trachea is central. There is note to percussion. Distant breath sounds, few rales and rhonchi. CARDIOVASCULAR SYSTEM: PMI not well localized. There is no pulsation or thrill. No parasternal heave. S1 normal. S2 physiologic. There was no S3, no rub. ABDOMEN: Soft, no tenderness, no rigidity, no guarding, no organomegaly. Bowel sounds normal. EXTREMITIES: No edema, no calf tenderness. Peripheral pulses diminished. LABORATORY DATA AND DIAGNOSTIC STUDIES: Looking at the EKG; EKG revealed sinus rhythm, left axis deviation. Echocardiogram was done, which revealed ejection fraction of 60%, also revealed LVH and mitral valve annular calcification. Right ventricular systolic pressure was normal at 27.3. Looking at the chest x-ray, chest x-ray shows increased interstitial lung markings, probably due to chronic lung disease and COPD, marginal degree of congestion cannot be excluded, right basilar infiltrate. Sodium was 141, potassium 4, chloride 104, carbon dioxide 30.5, BUN 23, creatinine 0.6, glucose 99, calcium 9.3, phosphorus 2, magnesium 2.1. Total bilirubin 0.4, AST 25, ALT 21, alkaline phosphatase 115. Troponin levels were 0.16, 0.12, and 0.12. BNP was 63, total protein 6.9, albumin 3.5, globulin 3.4. ____, LDL 87, total cholesterol 153, triglycerides 117, HDL 49. WBC count was 21.1, hemoglobin 13, hematocrit 38.6, MCV 88.3, MCH 29.8, MCHC 33.7, platelets 143, bands of 8. INR 0.97. Urine shows leukocyte esterase large, WBC of 10-25. MEDICATIONS: Include Tylenol, albuterol, DuoNeb inhaler, Lovenox, aspirin, ibuprofen, lactobacillus, Keppra, Levaquin, Ativan, methylprednisolone, phenytoin, temazepam, azithromycin, ceftriaxone and Lovenox. IMPRESSION: Elevated troponin level, possibility of non-Q-wave myocardial infarction; hypertension; shortness of breath; chronic obstructive pulmonary disease with exacerbation; pneumonia; seizures; degenerative joint disease; leukocytosis. PLAN: Plan is to continue present management. The patient is already on Lovenox and aspirin. We will add Lipitor. Beta paulino cannot be given due to his shortness of breath and chronic obstructive pulmonary disease. We will check BNP and BMP in a.m. Suggests to continue present management. JOB# [id number]
[2018-03-20 07:05] LABS: ANION GAP 12.6 (7.0-16.0); BUN - UREA NITROGEN 21 mg/dL (7-25); CALCIUM SERUM 9.1 mg/dL (8.6-10.3); CARBON DIOXIDE 27.9 mEq/L (21.0-31.0); CHLORIDE 103 mEq/L (98-107); CREATININE - SERUM 0.6 mg/dL (0.7-1.3); GLUCOSE 110 mg/dL (70-105); POTASSIUM SERUM 4.5 mEq/L (3.5-5.1); SODIUM SERUM 139 mEq/L (136-145)
[2018-03-20] MEDS: Atorvastatin Calcium 10 MG TAB PO SCH (09:03)
[2018-03-20] MEDS: Aspirin 81mg Chewable Tab PO SCH (09:03)
[2018-03-20] MEDS: Lactobacillus Rhamnosus GG 15 Billion CFU CAP.SPRINK PO SCH (09:03)
[2018-03-20] MEDS: Enoxaparin 80 mg/0.8 mL 0.8mL Syr SUBQ SCH (09:06)
[2018-03-20] MEDS ORDERED: Hydrocodone/APAP 5mg/325mg Tab PO PRN (12:06)
--- NOTE | 2018-03-20 13:32 | Diagnostic Imaging Report ---
Left elbow (3 views) HISTORY: Pain Surgical changes with orthopedic fixation pins and wires traverse the olecranon process. No acute bony abnormalities. No definite acute fractures. No radiographic evidence for joint effusion. IMPRESSION: 1. Surgical changes 2. No definite acute bony abnormalities. In the presence of recent trauma and persistent symptoms, a repeat radiograph in 5-7 days may be helpful for detection of a subtle or occult fracture.
[2018-03-20] MEDS: Levofloxacin IVPB 750mg/150mL Premix Bag IV SCH (14:18)
[2018-03-20] MEDS: Nitroglycerin 0.2 mg/hr Tdm TD SCH (16:17)
[2018-03-21] MEDS: Albuterol/Ipratropium Neb 3 ML AERS HHN SCH ×3 (01:11→13:54)
--- NOTE | 2018-03-21 07:37 | Progress Notes ---
DATE: 03/20/2018 IDENTIFICATION: A 77-year-old male. SUBJECTIVE: The patient seen and examined. The patient is complaining of cough with expectoration. The patient denies any fever or chills. The patient has pain on his left elbow where the patient had a surgery. The patient denies any nausea, vomiting. No reported chest pain as well. PHYSICAL EXAMINATION: On today's exam, VITAL SIGNS: Temperature 97.1, pulse 67, respiratory rate 18, blood pressure 150/70. HEENT: No facial asymmetry. Tongue was pink and coated. NECK: Supple, no JVD. HEART: Regular. CHEST AND LUNGS: Equal in expansion with expiratory wheezing. ABDOMEN: Soft, no guarding, no rigidity. Bowel sounds are present. No palpable mass. EXTREMITIES: No edema. Left elbow examination, there is some deformity noted, but there is no evidence of any signs and symptoms of inflammation. Old surgical scar noted. AVAILABLE LABORATORY AND DIAGNOSTIC DATA: White count of 5.7, hemoglobin 11.3, platelet count 139, BUN and creatinine is 21 and 0.6, BNP of 237. No chemistry panel for my review. Urine culture has more than 100,000 colony of gram-negative rods. CLINICAL IMPRESSION: 1. Right lower lobe pneumonia. 2. Chronic obstructive pulmonary disease exacerbation. 3. Slightly elevated troponin, possibly demand ischemia. 4. Seizure disorder. 5. Left elbow pain. 6. Degenerative joint disease. PLAN: 1. Continue to provide oxygen. 2. Nebulizer treatment. 3. IV steroid. 4. IV antibiotic. 5. General nursing care. 6. Pain management. 7. X-rays of the left elbow. 8. Follow lab. 9. Follow internet consultant's recommendation. 10. Would keep him as Med/Surg status. 11. Care plan reviewed and discussed with staff. JOB# [id number]
[2018-03-21] MEDS: methylPREDNISolone SS 40 mg Vial IV SCH (08:05)
[2018-03-21] MEDS: Atorvastatin Calcium 10 MG TAB PO SCH (08:06)
[2018-03-21] MEDS: Aspirin 81mg Chewable Tab PO SCH (08:06)
[2018-03-21] MEDS: Lactobacillus Rhamnosus GG 15 Billion CFU CAP.SPRINK PO SCH (08:06)
[2018-03-21] MEDS: Enoxaparin 80 mg/0.8 mL 0.8mL Syr SUBQ SCH (08:07)
[2018-03-21] MEDS ORDERED: Pantoprazole 40 mg EC Tab PO SCH (09:00)
[2018-03-21] MEDS ORDERED: Nitroglycerin 0.2 mg/hr Tdm TD SCH (16:00)
--- NOTE | 2018-03-21 23:40 | Progress Notes ---
DATE: IDENTIFICATION: A 77-year-old male. SUBJECTIVE: The patient seen and examined. The patient is lying in the bed. The patient has no new complaints. PHYSICAL EXAMINATION: VITAL SIGNS: Temperature 96.8, pulse 62, respiratory rate is 18, blood pressure 159/76. HEENT: Poor dentition. NECK: Supple, no JVD. HEART: Regular. CHEST AND LUNGS: Equal in expansion with mild expiratory wheezing. ABDOMEN: Soft. No guarding. No rigidity. Liver, spleen palpable. No palpable mass. EXTREMITIES: No edema of the lower extremity. AVAILABLE DIAGNOSTIC DATA: The elbow x-ray remarkable surgical changes with no definite acute bony abnormality. LABORATORY DATA: No labs for my review for today. CLINICAL IMPRESSION: 1. Chronic obstructive pulmonary disease exacerbation. 2. Right lower lobe pneumonia. 3. Elevated troponin with downward trend most likely secondary to demand ischemia. 4. Seizure disorder. 5. Left elbow pain. 6. Degenerative joint disease. 7. Hyperlipidemia. PLAN: Cut down steroids to 40 mg once a day, prednisone. The patient is to continue to receive antibiotic. The patient can be downgraded to a retirement setting at this time until the patient is more stable prior to going to assisted living facility. Care plan reviewed and discussed with staff. JOB# [id number]
--- NOTE | 2018-03-22 19:14 | Cardiology ---
03/19/2018 ECHOCARDIOGRAM REPORT The patient of Dr. Tay. M-MODE ECHOCARDIOGRAM: Mitral valve, anterior leaflet of mitral valve shows normal excursion, EF velocity. Posterior leaflet of the mitral valve shows normal excursion. Left ventricular posterior wall shows increased thickness, normal excursion. Interventricular septum shows increased thickness, normal excursion, hypertrophy of the left ventricle, ejection fraction 60%. Left atrium normal. Aortic root shows normal dimension, normal excursion of aortic leaflets. CONCLUSION: Hypertrophy of the left ventricle, ejection fraction 60%. 2D ECHO: Long axis view showed normal sized left ventricle with hypertrophy of the left ventricle. Left atrium normal. Aortic root shows normal dimension, normal excursion of aortic leaflets. Short axis view of mitral valve normal. Short aortic valve normal. Apical four chamber view showed normal sized left ventricle with hypertrophy of the left ventricle. Left atrium normal. Right ventricular cavity, right atrium normal, no pericardial effusion. CONCLUSION: Hypertrophy of the left ventricle, ejection fraction 60%. Doppler study shows trace tricuspid regurgitation. [facility]# [id number]
--- NOTE | 2018-04-12 11:02 | Discharge Summary ---
DATE OF DISCHARGE: 03/21/2018 PRINCIPAL DIAGNOSES: 1. Chronic obstructive pulmonary disease exacerbation. 2. Right lower lobe pneumonia. 3. Elevated troponin secondary to demand ischemia. 4. Seizure disorder. 5. Degenerative joint disease. 6. Hyperlipidemia. 7. Left elbow pain, chronic, secondary to previous injury and surgery. 8. Seizure disorder as well as urinary tract infections. BRIEF STATEMENT FOR THE REASON FOR ADMISSION: A 77-year-old male, resident of [facility], brought in to the Emergency Room for fever, chills, cough and congestion evaluation. The patient was noted to have COPD exacerbation with pneumonia. The patient was admitted. Please refer to my medical H and P for further information. HOSPITAL COURSE: The patient was admitted to telemetry unit. Oxygen nebulizer treatment, pulmonary toilet, Pulmonary consult and Cardiology consult was requested. Seizure medication was continued along with seizure precautions. The patient was also noted to have a UTI, which was suspected from prostatitis. The patient was followed by the oim consultant. The patient was having multiple other medical symptoms, which were addressed as well. The patient needed to have continuation of care since the patient was not ready to go to lower level of care. The patient was discharged to [facility] under my care where the patient will be followed by myself. At the time of discharge, all of his medications were reconciled. JOB# [id number]
== END 2018-03-21 16:00 | DRG 280 ==
LOC: ER 10:13 → TELE 17:07 → MSI 03-20 12:49
PROVIDERS: ADMIT Internal Medicine; ATTEND Internal Medicine
DX: I21.A1 Myocardial infarction type 2 (principal); J18.1 Lobar pneumonia, unspecified organism; J44.0 Chronic obstructive pulmonary disease with (acute) lower respiratory infection; N39.0 Urinary tract infection, site not specified; J44.1 Chronic obstructive pulmonary disease with (acute) exacerbation; M19.90 Unspecified osteoarthritis, unspecified site; R09.02 Hypoxemia; D69.6 Thrombocytopenia, unspecified; I10 Essential (primary) hypertension; G40.909 Epilepsy, unspecified, not intractable, without status epilepticus; Z82.49 Family history of ischemic heart disease and other diseases of the circulatory system; Z87.891 Personal history of nicotine dependence; Z88.1 Allergy status to other antibiotic agents
CPT/HCPCS: 36415-UA; 71045-TC; 71250-TC; 73070-TC-LT; 80048-TC; 80053-TC; 80061-TC; 80185-TC; 80299-90; 81001-TC; 83605; 83735-TC; 83880-TC; 84100-TC; 84484-TC; 85007-TC; 85025-TC; 85049-TC; 85379-TC; 85384-TC; 85610-TC; 85730-TC; 87070; 87086-90; 93005; 93307-TC; 94640; 94760; J0456; J0696; J1644; J1650; J1956; J2920; J3490; X3904; Z7610